=== PATIENT | male | born 1970 | race Caucasian/White ===

== ENCOUNTER 2022-07-25 07:27 | Day surgery (SDC) | payer BC ==
[2022-07-25] MEDS ORDERED: Propofol 200 MG/20 ML SDV IV ONE (07:28)
[2022-07-25] MEDS ORDERED: Lactated Ringers 1,000 ML IV SCH (07:30)
[2022-07-25] MEDS ORDERED: Sodium Chloride 0.9% 10 ML Syringe FLUSH PRN (07:30)
== END 2022-07-25 10:22 | disposition home or self-care (01) ==
LOC: FB.SDS 07:27
PROVIDERS: ATTEND Surgery
DX: K31.7 Polyp of stomach and duodenum (principal); K29.80 Duodenitis without bleeding; I10 Essential (primary) hypertension; Z79.899 Other long term (current) drug therapy; Z98.890 Other specified postprocedural states
CPT/HCPCS: 00731-QZ; 88305; J2704; J7120